=== PATIENT | male | born 1985 | race Two or more races ===

== ENCOUNTER 2019-12-09 08:53 | Inpatient (IN) | payer MEDICAID, OTHER ==
[~2019-12-09] VITALS: Ht 175.3 cm; Wt 96.8 kg
[2019-12-09] MEDS ORDERED: THIAMINE 100mg/ml INJ (200mg/2ml VIAL) IV ONE (09:15)
[2019-12-09] MEDS ORDERED: ONDANSETRON HCL 4 MG/2 ML VIAL IV ONE ×2 (09:15→12:45)
[2019-12-09] MEDS ORDERED: MORPHINE SULFATE 4 MG/ML SYR/VIAL IV ONE (09:15)
[2019-12-09] MEDS ORDERED: SODIUM CHLORIDE 0.9% 1,000 ML IV ONE ×2 (09:15)
[2019-12-09 09:30] LABS: Basophils # (auto) 0 10 ^3/uL (0-0.2); Basophils % (auto) 0.1 % (0.0-2.0); Eosinophils # (auto) 0 10 ^3/uL (0-0.8); Hematocrit 45.2 % (41.0-53.0); Hemoglobin 15.2 g/dL (13.5-17.5); Lymphocytes # (auto) 1.7 10 ^3/uL (0.4-5.4); Lymphocytes % (auto) 8.4 % (10.0-50.0); Mean Corpuscular Hemoglobin 28.3 pg (28.0-32.0); Mean Corpuscular Hgb Conc. 33.6 g/dL (32.0-36.0); Mean Corpuscular Volume 84.1 fL (80.0-100.0); Monocytes # (auto) 0.8 10 ^3/uL (0-1.3); Monocytes % (auto) 3.9 % (0.0-12.0); Neutrophils # (auto) 17.3 10 ^3/uL (1.6-8.6); Neutrophils % (auto) 87.6 % (37.0-80.0); Platelet Count (auto) 272 10^3/uL (140-450); Red Blood Cells 5.37 10^6/uL (4.5-5.90); Red Cell Distribution Width 14.6 % (11.8-14.3); White Blood Cell 19.7 10^3/uL (4.4-10.8)
[2019-12-09] MEDS ORDERED: PANTOPRAZOLE 40 MG/10 ML VIAL INJ IV ONE ×2 (09:39→09:45)
[2019-12-09 09:46] LABS: Calcium 8.2 mg/dL (8.5-10.1); Potassium 3.3 mmol/L (3.5-5.1)
[2019-12-09 09:51] LABS: BUN/Creatinine Ratio 10.6; Bilirubin, Total 0.3 mg/dL (0.2-1.0); Total Protein 7.9 g/dL (6.4-8.2)
[2019-12-09] MEDS ORDERED: cefTRIAXone 1GM/50ML D5W 50 ML IV ONE (12:15)
[2019-12-09] MEDS ORDERED: ONDANSETRON HCL 4 MG/2 ML VIAL ONE (12:38)
[2019-12-09] MEDS ORDERED: NITROGLYCERIN 0.4 MG SL TAB SL PRN ×2 (14:00→14:15)
[2019-12-09] MEDS ORDERED: MORPHINE SULF INJ 2 MG/ML SYRINGE 1ML IV PRN ×2 (14:00→14:15)
[2019-12-09] MEDS ORDERED: LABETALOL HCL 5 MG/ML 4ML SYRINGE IV PRN (14:15)
[2019-12-09] MEDS ORDERED: LORazepam 2MG/ML-1ML VIAL IV PRN ×2 (14:15→22:15)
[2019-12-09] MEDS ORDERED: SOD CHL 0.9%/ KCL 20MEQ 1,000 ML IV ONE (14:15)
[2019-12-09] MEDS ORDERED: ONDANSETRON HCL 4 MG/2 ML VIAL IV PRN (14:15)
[2019-12-09] MEDS ORDERED: PROMETHAZINE HCL 25 MG/ML 1ML ONE (14:16)
[2019-12-09 14:51] LABS: Amylase 20 U/L (25-115); Lipase 62 U/L (73-393)
[2019-12-09 17:02] LABS: Urine Bacteria NONE SEEN /hpf (None Seen); Urine Blood Negative /uL (Negative); Urine Specific Gravity 1.026 (1.001-1.035); Urine WBC 2 /hpf (0 - 3)
[2019-12-09 17:04] LABS: Amphetamine Screen, Urine NEGATIVE (NEGATIVE); Barbiturate Scree,Urine NEGATIVE (NEGATIVE); Benzodiazephine Screen, Urine NEGATIVE (NEGATIVE); Cannabinoid Screen, Urine NEGATIVE (NEGATIVE); Cocaine Screen, Urine POSITIVE (NEGATIVE)
[2019-12-09 17:13] LABS: Opiate Scree,Urine POSITIVE (NEGATIVE); Phencyclidine Screen, Urine NEGATIVE (NEGATIVE)
[2019-12-09] MEDS: LACTULOSE 10g/15ml SOLN PR SCH ×2 (18:00→23:35)
--- NOTE | 2019-12-09 19:37 | NUR ---
Telemetry admit from ER LAURA LANDRUM admitted to Telemetry unit after SBAR received. Patient oriented to Holly buckley RN, unit, room, bed, and unit policies regarding patient care and visiting hours. Patient now on continuous telemetry monitoring, tele box # 50 and telemetry reading on arrival to unit is [id number]. Patient placed on bedside oxygen, weighed by bed scale and encouraged to call if they need something. All questions and concerns addressed, patient verbalized understanding. Note: Came per wheelchair alert oriented x 4,Syriac speaking, placed in the bed comfortably, vital signs checked, routine admission done.
[2019-12-09 20:00] VITALS: BP 144/77
[2019-12-09 20:09] VITALS: BP 104/71
[2019-12-09] MEDS: PANTOPRAZOLE 40 MG/10 ML VIAL INJ IV SCH (21:04)
--- NOTE | 2019-12-09 22:15 | NUR ---
returned call Nanda Fofana. returned call, updated on patient status and reason for call,told that heart rate is always 134,135, and if he will to the toilet the heart is more higher to 150, 174, orders received of 50mg.cap. of librium every 8 hours as needed, Victoria 10./325mg. tab every 6 hours PRN,lorazepam 2mg.i.v.p every 6 hours as needed.and bedrest for safety Continue care.
[2019-12-09 22:17] LABS: Hematocrit 36.6 % (41.0-53.0); Hemoglobin 12.3 g/dL (13.5-17.5)
--- NOTE | 2019-12-09 22:30 | NUR ---
Advised to be in the bed all the time and just use the urinal for safety.
[2019-12-09] MEDS: chlordiazePOXIDE HCL 25 MG CAP PO PRN (22:44)
[2019-12-09] MEDS: HYDROcodone-ACET 10/325MG TAB PO PRN (22:45)
--- NOTE | 2019-12-10 03:25 | NUR ---
Complained of chest pain 8/10, given nitro.0.4mg.sublingual x one.vital signs checked blood pressure of 133/65, pulse 125, respiration, 20, 97 %oxygen saturation, EKG done, with normal result.
[2019-12-10] MEDS: HYDROcodone-ACET 10/325MG TAB PO PRN (03:42)
--- NOTE | 2019-12-10 04:02 | NUR ---
Inspite of explaining to use the urinal, he is not listening, went to the toilet again couple of times.
[2019-12-10 05:00] VITALS: BP 123/66
[2019-12-10 05:36] LABS: Basophils # (auto) 0 10 ^3/uL (0-0.2); Basophils % (auto) 0.3 % (0.0-2.0); Eosinophils # (auto) 0 10 ^3/uL (0-0.8); Hematocrit 35.2 % (41.0-53.0); Hemoglobin 12.1 g/dL (13.5-17.5); Mean Corpuscular Hemoglobin 29.2 pg (28.0-32.0); Mean Corpuscular Hgb Conc. 34.4 g/dL (32.0-36.0); Mean Corpuscular Volume 84.8 fL (80.0-100.0); Monocytes # (auto) 1.4 10 ^3/uL (0-1.3); Monocytes % (auto) 9.5 % (0.0-12.0); Neutrophils # (auto) 10.6 10 ^3/uL (1.6-8.6); Neutrophils % (auto) 70.2 % (37.0-80.0); Nucleated Red Blood Cells % 0.1 %; Platelet Count (auto) 209 10^3/uL (140-450); Red Blood Cells 4.15 10^6/uL (4.5-5.90); Red Cell Distribution Width 14.5 % (11.8-14.3); White Blood Cell 15.1 10^3/uL (4.4-10.8)
[2019-12-10] MEDS: LACTULOSE 10g/15ml SOLN PR SCH ×3 (05:46→18:00)
--- NOTE | 2019-12-10 05:46 | NUR ---
Refused to sign the consent, said the doctor did tell him.
[2019-12-10 05:52] LABS: INR 0.97 (0.9-1.15); Partial Thromboplastin Time 24.5 sec (23.0-31.2)
[2019-12-10 05:57] LABS: Albumin 3.3 g/dL (3.4-5.0); Calcium 7.7 mg/dL (8.5-10.1); Potassium 3.6 mmol/L (3.5-5.1)
[2019-12-10 06:01] LABS: Albumin 3.4 g/dL (3.4-5.0); BUN/Creatinine Ratio 6.6; Bilirubin, Total 0.4 mg/dL (0.2-1.0); Calcium 7.6 mg/dL (8.5-10.1); Magnesium 2.8 mg/dL (1.6-2.6); Potassium 3.6 mmol/L (3.5-5.1); Total Protein 6.6 g/dL (6.4-8.2)
[2019-12-10 06:05] LABS: BUN/Creatinine Ratio 6.5; Bilirubin, Total 0.3 mg/dL (0.2-1.0); Total Protein 6.7 g/dL (6.4-8.2)
--- NOTE | 2019-12-10 07:03 | NUR ---
INFORMED TO Tristen WALTON, REGARDING PATIENT COMPLAINED OF CHEST PAIN AT AROUND 0325 A.M. AND GIVEN ONE TIME NITROGLYCERIN0.4MG.SUBLINGUAL, DID EKG, SAY SINUS TACHYCARDIA 130 NORMAL EKG, WITH ORDER FOR CARDIO CONSULT.
--- NOTE | 2019-12-10 07:37 | NUR ---
Report given to Dina Mosher, patient is resting no distress, Npo maintained.
[2019-12-10 09:00] VITALS: BP 123/90
[2019-12-10] MEDS: PANTOPRAZOLE 40 MG/10 ML VIAL INJ IV SCH (09:58)
[2019-12-10] MEDS: chlordiazePOXIDE HCL 25 MG CAP PO PRN ×2 (09:59→21:25)
[2019-12-10] MEDS ORDERED: PANTOPRAZOLE 40 MG/10 ML VIAL INJ IV SCH (10:00)
[2019-12-10] MEDS ORDERED: ENOXAPARIN SOD 40 MG/0.4 ML SYRINGE SC SCH (10:00)
[2019-12-10] MEDS ORDERED: SODIUM CHLORIDE LOCK 10 ML ONE (10:20)
[2019-12-10] MEDS ORDERED: LIDOCAINE VISCOUS 2% 15ML UD ONE (10:20)
[2019-12-10] MEDS ORDERED: diphenhdrAMINE HCL 50 MG/1 ML VL ONE (10:21)
[2019-12-10] MEDS: fentaNYL CITRATE 100 MCG/2 ML VL ONE ×2 (11:18→11:21)
[2019-12-10] MEDS: MIDAZOLAM HCL 5 MG/ML-1ML VIAL ONE ×2 (11:18→11:21)
[2019-12-10 13:00] VITALS: BP 129/70
[2019-12-10] MEDS ORDERED: THIAMINE 100mg/ml INJ (200mg/2ml VIAL) IV ONE (13:15)
[2019-12-10] MEDS ORDERED: MULTIPLE VITAMINS W/ MINERALS TAB PO ONE (13:15)
[2019-12-10] MEDS: SODIUM CHLORIDE 0.9% 1,000 ML IV SCH (14:56)
[2019-12-10 17:00] VITALS: BP 123/73
[2019-12-10] MEDS: LORazepam 2MG/ML-1ML VIAL IV PRN (19:30)
--- NOTE | 2019-12-10 19:30 | NUR ---
Opening Shift Note Assumed care of patient, awake and alert Estonian speaking up and about. No S/S of distress/SOB or pain. Instructed on POC and to call for assist PRN, will continue to monitor for changes Q1hr and PRN.Called for anxiety medicine, given Ativan 1mg.i.v.p as needed.
[2019-12-10] MEDS: PANTOPRAZOLE 40 MG TAB PO SCH (21:25)
[2019-12-10 22:00] VITALS: BP 125/95
[2019-12-11 05:00] VITALS: BP 132/85
[2019-12-11] MEDS: LACTULOSE 10g/15ml SOLN PR SCH ×3 (06:00→08:25)
[2019-12-11] MEDS: SODIUM CHLORIDE 0.9% 1,000 ML IV SCH (06:08)
[2019-12-11 06:20] LABS: Basophils # (auto) 0 10 ^3/uL (0-0.2); Basophils % (auto) 0.7 % (0.0-2.0); Eosinophils # (auto) 0 10 ^3/uL (0-0.8); Eosinophils % (auto) 0.4 % (0.0-7.0); Hematocrit 35.5 % (41.0-53.0); Hemoglobin 12.2 g/dL (13.5-17.5); Lymphocytes # (auto) 2.6 10 ^3/uL (0.4-5.4); Lymphocytes % (auto) 41.2 % (10.0-50.0); Mean Corpuscular Hemoglobin 29.2 pg (28.0-32.0); Mean Corpuscular Hgb Conc. 34.4 g/dL (32.0-36.0); Monocytes # (auto) 0.6 10 ^3/uL (0-1.3); Monocytes % (auto) 9.6 % (0.0-12.0); Neutrophils # (auto) 3.1 10 ^3/uL (1.6-8.6); Neutrophils % (auto) 48.1 % (37.0-80.0); Nucleated Red Blood Cells % 0.2 %; Platelet Count (auto) 170 10^3/uL (140-450); Red Blood Cells 4.17 10^6/uL (4.5-5.90); Red Cell Distribution Width 14.1 % (11.8-14.3); White Blood Cell 6.4 10^3/uL (4.4-10.8)
--- NOTE | 2019-12-11 06:24 | NUR ---
Patient said he has medical card insurance and he memorized the no.
[2019-12-11 06:41] LABS: Potassium 3.4 mmol/L (3.5-5.1)
[2019-12-11 06:45] LABS: BUN/Creatinine Ratio 11.6; Calcium 8.2 mg/dL (8.5-10.1)
--- NOTE | 2019-12-11 07:22 | NUR ---
Report given to Dina Mosher, patient is resting no distress.
[2019-12-11 08:23] VITALS: BP 133/74
[2019-12-11] MEDS: LORazepam 2MG/ML-1ML VIAL IV PRN (08:24)
[2019-12-11] MEDS: PANTOPRAZOLE 40 MG TAB PO SCH (08:25)
[2019-12-11] MEDS: chlordiazePOXIDE HCL 25 MG CAP PO PRN (08:25)
[2019-12-11] MEDS ORDERED: THIAMINE 100mg/ml INJ (200mg/2ml VIAL) IV SCH (10:00)
[2019-12-11] MEDS ORDERED: MULTIPLE VITAMINS W/ MINERALS TAB PO SCH (10:00)
--- NOTE | 2019-12-11 10:35 | NUR ---
AMA Note LAURA LANDRUM states they want to leave the hospital Against Medical Advice (AMA). Patient encouraged to stay for further treatment/stabilization. MD notified of patient's wishes. Patient advised of the risks and benefits of leaving AMA. Patient verbalized understanding. Patient encouraged to return to the ER if symptoms do not improve or worsen.
[2019-12-12 09:40] LABS: Hepatitis B Surface Antibody Negative
[2019-12-12 10:15] LABS: Hepatitis A Total Antibody Positive
[2019-12-12 13:09] LABS: Hepatitis B Core Total AB Negative
[2019-12-12 13:10] LABS: Hepatitis B Surface Antigen Negative (Negative); Hepatitis C Antibody Negative (Negative)
--- NOTE | 2019-12-12 15:05 | NUR ---
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 No call or page on this patient. Patient discharged home prior to being assessed. Addendum: 12/12/19 at 1507 by Jolie Salinas Amended: Links added.
== END 2019-12-11 10:35 | disposition left against medical advice (07) | DRG 241 ==
LOC: ER 08:53 → OVERFLOW 08:54 → TELE-WESTW 19:40
PROVIDERS: ADMIT Family Medicine; ATTEND Family Medicine
PROC: 0DB68ZX Excision of Stomach, Via Natural or Artificial Opening Endoscopic, Diagnostic (ICD-10-PCS; principal; 2019-12-10 11:14)
DX: K29.21 Alcoholic gastritis with bleeding (principal); N17.0 Acute kidney failure with tubular necrosis; G93.41 Metabolic encephalopathy; R65.10 Systemic inflammatory response syndrome (SIRS) of non-infectious origin without acute organ dysfunction; K20.9 Esophagitis, unspecified; Z20.828 Contact with and (suspected) exposure to other viral communicable diseases; E86.0 Dehydration; E87.1 Hypo-osmolality and hyponatremia; Y90.0 Blood alcohol level of less than 20 mg/100 ml; E87.6 Hypokalemia; F10.229 Alcohol dependence with intoxication, unspecified; F19.90 Other psychoactive substance use, unspecified, uncomplicated; Z79.899 Other long term (current) drug therapy
CPT/HCPCS: 36415; 70450; 71045; 74176; 80048; 80053; 80307; 80320; 81001; 82140; 82150; 83036; 83690; 83735; 84443; 85014; 85018; 85025; 85610; 85730; 86704; 86706; 86708; 86803; 86850; 86900; 86901; 87340; 93005; 96361; 96365; 96367; 96375; 96376; C9113; G0378; J0696; J2250; J2405